=== PATIENT | male | born 1985 | race Two or more races ===

== ENCOUNTER 2023-06-13 15:30 | Emergency (ER) | payer OTHER ==
[~2023-06-13] VITALS: Ht 177.8 cm; Wt 95.5 kg
[2023-06-13 15:31] VITALS: BP 134/78; PULSE 88; RESP 18; TEMP 98.2
[2023-06-13 15:49] LABS: COVID AG,FIA SOURCE NASAL SWAB
[2023-06-13 16:07] LABS: SARS-COV2 (COVID) ANTIGEN,FIA Negative (Negative)
[2023-06-13] MEDS ORDERED: IBUPROFEN 600 MG TABLET PO ONE (17:45)
[2023-06-13] MEDS ORDERED: LIDOCAINE 5% TRANSDERMAL PATCH TD ONE (17:45)
[2023-06-13] MEDS ORDERED: LIDO700A15 TP (18:56)
[2023-06-13] MEDS ORDERED: BACL10TA PO (19:02)
[2023-06-13] MEDS ORDERED: IBUP-1492 PO (19:02)
== END 2023-06-13 19:23 | disposition home or self-care (01) ==
LOC: EMS 15:33 → EDSEX 15:33 → EMS 19:23
DX: R07.89 Other chest pain (principal); R05.9 Cough, unspecified; Z20.822 Contact with and (suspected) exposure to COVID-19
CPT/HCPCS: 71046; 99284